=== PATIENT | male | born 1980 | race Caucasian/White ===

== ENCOUNTER 2021-05-02 10:45 | Emergency (ER) | payer MEDICAID ==
[~2021-05-02] VITALS: Ht 170.2 cm; Wt 81.8 kg
[2021-05-02 11:03] VITALS: BP 144/107
[2021-05-02 13:20] LABS: COVID AG,FIA SOURCE NASOPHARYNGEAL
[2021-05-02] MEDS ORDERED: IBUPROFEN 600 MG TABLET PO ONE (13:45)
[2021-05-02] MEDS ORDERED: HYDROCODONE/ACETAMINOPHEN 5-325 MG TABLET PO ONE (13:45)
== END 2021-05-02 14:30 | disposition home or self-care (01) ==
LOC: EMS 10:57
DX: U07.1 COVID-19 (principal)
CPT/HCPCS: 87426; 99283; U0003